=== PATIENT | male | born 1990 | race Hispanic/Latino ===

== ENCOUNTER → 2024-09-05 | Day surgery (SDC) | payer BC ==
[~2024-09-05] MED LIST: LACTATED RINGER'S 1,000 ML ONE; LIDOCAINE HCL 2% LOCAL INJ 5 ML SDV VIAL INJ ONE; MIDAZOLAM HCL 2 MG/2 ML VIAL ONE; MULTI-VITAMIN1 EACH PO; PROPOFOL IV EMULSION 10 MG/ML 20 ML VIAL ONE; RED YEAST RICE600 MG
[2024-09-05 17:25] VITALS: BP 112/68; PULSE 87; RESP 18; TEMP 97; O2SAT 98
== END | disposition home or self-care (01) ==
LOC: OR 14:29
PROVIDERS: ATTEND Internal Medicine Gastroenterology
DX: K92.1 Melena (principal); D12.8 Benign neoplasm of rectum; K57.30 Diverticulosis of large intestine without perforation or abscess without bleeding; K64.8 Other hemorrhoids; K21.9 Gastro-esophageal reflux disease without esophagitis; R19.8 Other specified symptoms and signs involving the digestive system and abdomen; Z87.898 Personal history of other specified conditions
CPT/HCPCS: 45384; J2003; J2250